=== PATIENT | female | born 1985 | race Caucasian/White ===

== ENCOUNTER 2019-10-21 08:29 | Emergency (ER) | payer OTHER ==
[~2019-10-21] VITALS: Ht 165.1 cm; Wt 65.8 kg
[~2019-10-21 08:29] MED LIST: CARAFATE 1 GM TA1 G1 PO; HYDROCODONE-AP1 EAC6 PO; NOHOMEMEDICATIONS; ZOFRAN ODT4 MG PO
[2019-10-21 08:58] LABS: INFLUENZA A ANTIGEN Negative (Negative); INFLUENZA B ANTIGEN Negative (Negative)
[2019-10-21] MEDS ORDERED: NORCO 5-325 TA1 EAC1 PO (09:10)
[2019-10-21] MEDS ORDERED: FLEXERIL PO (09:10)
[2019-10-21 09:35] VITALS: BP 107/73
== END 2019-10-21 09:38 | disposition home or self-care (01) ==
LOC: M.ERS 08:29
PROVIDERS: Family Medicine
DX: M43.6 Torticollis (principal)